=== PATIENT | female | born 1970 | race Hispanic/Latino ===

== ENCOUNTER 2021-01-06 11:23 | Emergency (ER) | payer SELFPAY ==
[2021-01-06] MEDS ORDERED: ASPIRIN 325 MG TAB PO ONE ×2 (12:30→22:10)
--- NOTE | 2021-01-06 12:36 | Event Note ---
ED Screening Note Date of service: 01/06/21 Time: 12:34 ED Screening Note: 50-year-old female with a past medical history of diabetes, hypertension, hyperlipidemia, chronic bronchitis, anxiety and depression and tobacco use presents to the ER today with complaints of left-sided chest heaviness for the past couple weeks with associated headache, blurry vision and mild shortness of breath. This initial assessment/diagnostic orders/clinical plan/treatment(s) is/are subject to change based on patients health status, clinical progression and re- assessment by fellow clinical providers in the ED. Further treatment and workup at subsequent clinical providers discretion. Patient/guardian urged not to elope from the ED as their condition may be serious if not clinically assessed and managed. Initial orders include: Chest pain order set
[2021-01-06 13:35] LABS: Basophils # (Auto) 0.1 K/mm3 (0.0-0.1); Basophils % (Auto) 0.8 % (0.0-1.8); Eosinophils # (Auto) 0.1 K/mm3 (0.0-0.4); Eosinophils % (Auto) 1.2 % (0.0-4.3); Hematocrit 46.4 % (30.3-42.9); Hemoglobin 15.7 gm/dl (10.1-14.3); Lymphocytes # (Auto) 2.3 K/mm3 (1.2-5.4); Lymphocytes % (Auto) 27.2 % (13.4-35.0); Mean Corpuscular HGB Conc 34 % (30-34); Mean Corpuscular Volume 91 fl (79-97); Monocytes # (Auto) 0.6 K/mm3 (0.0-0.8); Monocytes % (Auto) 7.2 % (0.0-7.3); Platelet Count 252 K/mm3 (140-440); Red Cell Distribution Width 15.7 % (13.2-15.2)
--- NOTE | 2021-01-06 13:41 | XRay Report ---
CHEST 2 VIEWS INDICATION / CLINICAL INFORMATION: Chest Pain. COMPARISON: None available. FINDINGS: SUPPORT DEVICES: None. HEART / MEDIASTINUM: No significant abnormality. LUNGS / PLEURA: Small calcified granuloma in the right lung base. Otherwise, no significant pulmonary or pleural abnormality. No pneumothorax. ADDITIONAL FINDINGS: No significant additional findings. IMPRESSION: 1. No acute findings. Signer Name: Kinjal Alonzo MD Signed: 01/06/2021 1:36 PM Workstation Name: [id number]
[2021-01-06 13:49] LABS: INR 0.84 (0.87-1.13)
[2021-01-06 14:45] LABS: Alanine Aminotransferase 55 units/L (7-56); Albumin 4.9 g/dL (3.9-5); BUN/Creatinine Ratio 15; Blood Urea Nitrogen 9 mg/dL (7-17); Calcium 10.3 mg/dL (8.4-10.2); Hemolysis Index 50
[2021-01-06] MEDS ORDERED: KETOROLAC 60 MG/2 ML INJ IM ONE (21:37)
[2021-01-06] MEDS ORDERED: cloNIDine 0.1 MG TAB PO ONE (21:37)
--- NOTE | 2021-01-06 22:15 | Emergency Department Report ---
ED General Adult HPI - General Chief complaint: Chest Pain Stated complaint: BLURRED VISION/CHEST /DIZZY/HEADACHE Time Seen by Provider: 01/06/21 21:24 Source: patient Mode of arrival: Ambulatory Limitations: No Limitations - History of Present Illness Initial comments: Patient is a 50-year-old female with a past medical history of hypertension who also was recently diagnosed with diabetes with a A1c of 7.4 with presenting with 1 week of mild chest heaviness as well as some blurry vision and just not feeling well. She was diagnosed with mild diabetes several days ago and has a prescription for Metformin which she has not picked. Patient denies any cough cold congestion fevers or chills. States the she can see feels as though there is just a strain with her eyes when looking at things. Severity scale (0 -10): 9 - Related Data Previous Rx's Medication Instructions Recorded Last Taken Type hydroCHLOROthiazide [HCTZ] 25 mg PO QDAY #30 tablet 01/06/21 Unknown Rx Allergies Allergy/AdvReac Type Severity Reaction Status Date / Time Penicillins Allergy Itching Verified 01/06/21 11:40 ED Review of Systems ROS: Stated complaint: BLURRED VISION/CHEST /DIZZY/HEADACHE Other details as noted in HPI Comment: All other systems reviewed and negative ED Past Medical Hx - Past Medical History Previous Medical History?: Yes Hx Hypertension: Yes Hx Diabetes: (borderline) - Surgical History Past Surgical History?: No - Medications Home Medications: Home Medications Medication Instructions Recorded Confirmed Last Taken Type hydroCHLOROthiazide [HCTZ] 25 mg PO QDAY #30 tablet 01/06/21 Unknown Rx ED Physical Exam - General Limitations: No Limitations General appearance: alert, in no apparent distress - Head Head exam: Present: atraumatic, normocephalic - Eye Eye exam: Present: normal appearance, PERRL, EOMI - ENT ENT exam: Present: mucous membranes moist - Neck Neck exam: Present: normal inspection - Respiratory Respiratory exam: Present: normal lung sounds bilaterally. Absent: respiratory distress, wheezes, rales, rhonchi - Cardiovascular Cardiovascular Exam: Present: regular rate, normal rhythm, normal heart sounds. Absent: systolic murmur, diastolic murmur, rubs, gallop - GI/Abdominal GI/Abdominal exam: Present: soft, normal bowel sounds. Absent: distended, tenderness, guarding, rebound - Extremities Exam Extremities exam: Present: normal inspection - Back Exam Back exam: Present: normal inspection - Neurological Exam Neurological exam: Present: alert, oriented X3 - Psychiatric Psychiatric exam: Present: normal affect, normal mood - Skin Skin exam: Present: warm, dry, intact, normal color. Absent: rash ED Course Vital Signs 01/06/21 01/06/21 01/06/21 12:38 21:25 21:30 Temperature 98.6 F 97.7 F Pulse Rate 114 H 104 H 96 H Respiratory 18 17 16 Rate Blood Pressure 164/84 Blood Pressure 152/97 164/84 [Right] O2 Sat by Pulse 96 98 97 Oximetry 01/06/21 01/06/21 01/06/21 21:46 21:50 21:54 Temperature Pulse Rate 95 H 104 H Respiratory 12 18 Rate Blood Pressure 127/82 127/82 Blood Pressure [Right] O2 Sat by Pulse 98 Oximetry 01/06/21 22:00 Temperature Pulse Rate 111 H Respiratory 21 Rate Blood Pressure 164/84 Blood Pressure [Right] O2 Sat by Pulse 98 Oximetry ED Medical Decision Making - Lab Data Result diagrams: 01/06/21 12:56 01/06/21 12:56 Lab Results 01/06/21 01/06/21 01/06/21 Range/Units 12:56 12:56 12:56 WBC 8.6 (4.5-11.0) K/mm3 RBC 5.10 H (3.65-5.03) M/mm3 Hgb 15.7 H (10.1-14.3) gm/dl Hct 46.4 H (30.3-42.9) % MCV 91 (79-97) fl MCH 31 (28-32) pg MCHC 34 (30-34) % RDW 15.7 H (13.2-15.2) % Plt Count 252 (140-440) K/mm3 Lymph % (Auto) 27.2 (13.4-35.0) % [place] % (Auto) 7.2 (0.0-7.3) % Eos % (Auto) 1.2 (0.0-4.3) % Baso % (Auto) 0.8 (0.0-1.8) % Lymph # (Auto) 2.3 (1.2-5.4) K/mm3 [place] # (Auto) 0.6 (0.0-0.8) K/mm3 Eos # (Auto) 0.1 (0.0-0.4) K/mm3 Baso # (Auto) 0.1 (0.0-0.1) K/mm3 Seg Neutrophils % 63.6 (40.0-70.0) % Seg Neutrophils # 5.5 (1.8-7.7) K/mm3 PT 12.1 L (12.2-14.9) Sec. INR 0.84 L (0.87-1.13) APTT 23.0 L (24.2-36.6) Sec. Sodium 135 L (137-145) mmol/L Potassium 3.7 (3.6-5.0) mmol/L Chloride 94.7 L (98-107) mmol/L Carbon Dioxide 23 (22-30) mmol/L Anion Gap 21 mmol/L BUN 9 (7-17) mg/dL Creatinine 0.6 (0.6-1.2) mg/dL Estimated GFR > 60 ml/min BUN/Creatinine Ratio 15 % Glucose 109 H (65-100) mg/dL POC Glucose (70-105) mg/dL Calcium 10.3 H (8.4-10.2) mg/dL Total Bilirubin 0.50 (0.1-1.2) mg/dL AST 51 H (5-40) units/L ALT 55 (7-56) units/L Alkaline Phosphatase 119 (35-129) units/L Troponin T < 0.010 (0.00-0.029) ng/mL Total Protein 8.2 (6.3-8.2) g/dL Albumin 4.9 (3.9-5) g/dL Albumin/Globulin Ratio 1.5 % 01/06/21 01/06/21 Range/Units 18:38 21:48 WBC (4.5-11.0) K/mm3 RBC (3.65-5.03) M/mm3 Hgb (10.1-14.3) gm/dl Hct (30.3-42.9) % MCV (79-97) fl MCH (28-32) pg MCHC (30-34) % RDW (13.2-15.2) % Plt Count (140-440) K/mm3 Lymph % (Auto) (13.4-35.0) % [place] % (Auto) (0.0-7.3) % Eos % (Auto) (0.0-4.3) % Baso % (Auto) (0.0-1.8) % Lymph # (Auto) (1.2-5.4) K/mm3 [place] # (Auto) (0.0-0.8) K/mm3 Eos # (Auto) (0.0-0.4) K/mm3 Baso # (Auto) (0.0-0.1) K/mm3 Seg Neutrophils % (40.0-70.0) % Seg Neutrophils # (1.8-7.7) K/mm3 PT (12.2-14.9) Sec. INR (0.87-1.13) APTT (24.2-36.6) Sec. Sodium (137-145) mmol/L Potassium (3.6-5.0) mmol/L Chloride (98-107) mmol/L Carbon Dioxide (22-30) mmol/L Anion Gap mmol/L BUN (7-17) mg/dL Creatinine (0.6-1.2) mg/dL Estimated GFR ml/min BUN/Creatinine Ratio % Glucose (65-100) mg/dL POC Glucose 151 H (70-105) mg/dL Calcium (8.4-10.2) mg/dL Total Bilirubin (0.1-1.2) mg/dL AST (5-40) units/L ALT (7-56) units/L Alkaline Phosphatase (35-129) units/L Troponin T < 0.010 (0.00-0.029) ng/mL Total Protein (6.3-8.2) g/dL Albumin (3.9-5) g/dL Albumin/Globulin Ratio % - EKG Data -: EKG Interpreted by [place] EKG shows normal: sinus rhythm, axis, intervals, QRS complexes, ST-T waves Rate: tachycardia (104) - EKG Data Interpretation: normal EKG - Radiology Data [facility] [address] [place] [address] XRay Report Signed Patient: SHIRLEY FAROOQ MR#: [id number] : 1970 Acct:[id number] Age/Sex: 50 / F ADM Date: 01/06/21 Loc: ED Attending Dr: Ordering Physician: BING DAIGLE Date of Service: 01/06/21 Procedure(s): XR chest routine 2V Accession Number(s): [id number] cc: BING DAIGLE Fluoro Time In Minutes: CHEST 2 VIEWS INDICATION / CLINICAL INFORMATION: Chest Pain. COMPARISON: None available. FINDINGS: SUPPORT DEVICES: None. HEART / MEDIASTINUM: No significant abnormality. LUNGS / PLEURA: Small calcified granuloma in the right lung base. Otherwise, no significant pulmonary or pleural abnormality. No pneumothorax. ADDITIONAL FINDINGS: No significant additional findings. IMPRESSION: 1. No acute findings. Signer Name: Kinjal Alonzo MD Signed: 01/06/2021 1:36 PM Workstation Name: [id number] Transcribed By: [facility] Dictated By: Kinjal Alonzo MD Electronically Authenticated By: Kinjal Alonzo MD Signed Date/Time: 01/06/21 1336 - Medical Decision Making Catapres was ordered however the blood pressure dropped spontaneously. Before discharge it went up slightly to 150 systolic however I do not feel as though the patient needs any acute intervention regarding the blood pressure. We will increase her hydrochlorothiazide dose to 25 mg daily. She is to continue with the Norvasc 10 mg and follow-up with her primary care physician. Patient blood glucose was 155 at its highest. Patient encouraged to start her Metformin. Patient has 2 - troponins and normal EKG and do not see any evidence of acute TN . Regard to patient's chest discomfort patient be given cardiology for follow- up. Critical care attestation.: If time is entered above; I have spent that time in minutes in the direct care of this critically ill patient, excluding procedure time. ED Disposition Clinical Impression: Atypical chest pain, Hypertensive urgency, Hyperglycemia Disposition: DC-01 TO HOME OR SELFCARE Is pt being admited?: No Does the pt Need Aspirin: No Condition: Stable Instructions: Nonspecific Chest Pain, Adult Referrals: PRIMARY CARE, [Primary Care Provider] - 3-5 Days Time of Disposition: 22:15
[2021-01-06 22:44] VITALS: BP 130/82
--- NOTE | 2021-01-11 12:51 | Electrocardiograph Report ---
[facility] Test Date: 2021-01-06 Test Time: 11:35:11 Pat Name: SHIRLEY FAROOQ Department: Room: Gender: F Marketing Planner: PILO : 1970 Requested By: BING DAIGLE Order Number: [id number] Reading MD: Brinda Ibarra Measurements Intervals [place] Rate: 104 P: 69 [place]: 170 QRS: 38 QRSD: 84 T: 58 QT: 359 QTc: 473 Interpretive Statements Sinus tachycardia Left atrial enlargement No previous ECG available for comparison Electronically Signed On 01-11-2021 12:50:48 EDT by Brinda Ibarra
== END 2021-01-06 22:50 | disposition home or self-care (01) ==
LOC: ED 11:23
DX: I16.0 Hypertensive urgency (principal); R73.9 Hyperglycemia, unspecified; R07.89 Other chest pain; I10 Essential (primary) hypertension; Z79.899 Other long term (current) drug therapy; Z88.0 Allergy status to penicillin
CPT/HCPCS: 36415; 71046; 80053; 82962; 84484; 85025; 85610; 85730; 93005; 96372; 99284; J1885

== ENCOUNTER 2022-04-17 14:59 | Emergency (ER) | payer SELFPAY ==
[2022-04-17 17:55] LABS: Basophils # (Auto) 0.1 K/mm3 (0.0-0.1); Eosinophils # (Auto) 0.1 K/mm3 (0.0-0.4); Eosinophils % (Auto) 1.3 % (0.0-4.3); Hematocrit 45.6 % (30.3-42.9); Hemoglobin 15.1 gm/dl (10.1-14.3); Lymphocytes # (Auto) 2.7 K/mm3 (1.2-5.4); Lymphocytes % (Auto) 35.9 % (13.4-35.0); Mean Corpuscular HGB Conc 33 % (30-34); Mean Corpuscular Volume 97 fl (79-97); Monocytes # (Auto) 0.6 K/mm3 (0.0-0.8); Monocytes % (Auto) 7.5 % (0.0-7.3); Platelet Count 211 K/mm3 (140-440); Red Blood Count 4.68 M/mm3 (3.65-5.03); Red Cell Distribution Width 13.7 % (13.2-15.2)
[2022-04-17 18:29] LABS: Alanine Aminotransferase 26 units/L (7-56); Albumin 4.8 g/dL (3.9-5); Blood Urea Nitrogen 14 mg/dL (7-17); Calcium 10.3 mg/dL (8.4-10.2); Hemolysis Index 44
[2022-04-17 18:30] LABS: BUN/Creatinine Ratio 23
[2022-04-17] MEDS ORDERED: IBUPROFEN 800 MG TAB PO ONE (23:14)
[2022-04-17] MEDS ORDERED: diphenhydrAMINE 25 MG CAP PO ONE (23:14)
--- NOTE | 2022-04-17 23:53 | XRay Report ---
CHEST 2 VIEWS INDICATION / CLINICAL INFORMATION: Dizziness. COMPARISON: 01/06/2021 FINDINGS: SUPPORT DEVICES: None. HEART / MEDIASTINUM: No significant abnormality. LUNGS / PLEURA: No significant pulmonary or pleural abnormality. No pneumothorax. Incidental note is made of bilateral calcified granulomata. The appearance is suggestive of prior healed varicella pneum onia. ADDITIONAL FINDINGS: No significant additional findings. IMPRESSION: 1. No acute findings. No interval change. Signer Name: Camilla Kwok MD Signed: 04/17/2022 11:48 PM Workstation Name: [email or web address]
--- NOTE | 2022-04-18 01:47 | Emergency Department Report ---
ED General Adult HPI - General Chief complaint: Dizziness Stated complaint: SOB, BODY PAIN Time Seen by Provider: 04/17/22 23:12 Source: patient Mode of arrival: Ambulatory Limitations: No Limitations - History of Present Illness Initial comments: Patient 52-year-old female who presents for dizziness and head congestion for 4 days. Symptoms are worse with turning head bending or stooping. States associated body aches and cough. Cough is productive clear. There is no wheezing no stridor. Patient denies history of asthma. Patient is a [id number] smoker. Patient states malaise no fever or chills. Patient is tolerating p.o. hydration. There is a history of hypertension controlled with lisinopril, hydrochlorothiazide, amlodipine. Severity scale (0 -10): 7 - Related Data Previous Rx's Medication Instructions Recorded Last Taken Type hydroCHLOROthiazide [HCTZ] 25 mg PO QDAY #30 tablet 01/06/21 Unknown Rx Ibuprofen [Motrin 800 MG tab] 800 mg PO Q8HR PRN #30 tablet 04/18/22 Unknown Rx diphenhydrAMINE [Benadryl CAP] 25 mg PO Q6HR PRN #30 capsule 04/18/22 Unknown Rx predniSONE 10 mg PO QDAY #5 tab 04/18/22 Unknown Rx Allergies Allergy/AdvReac Type Severity Reaction Status Date / Time Penicillins Allergy Itching Verified 01/06/21 11:40 ED Review of Systems ROS: Stated complaint: SOB, BODY PAIN Other details as noted in HPI Constitutional: denies: chills, fever Eyes: denies: eye pain, eye discharge, vision change ENT: ear pain, congestion, other (Sinus pain and pressure). denies: throat pain Respiratory: denies: cough, shortness of breath, wheezing Cardiovascular: denies: chest pain, palpitations Endocrine: no symptoms reported Gastrointestinal: denies: abdominal pain, nausea, vomiting, diarrhea Genitourinary: denies: urgency, dysuria, discharge Musculoskeletal: denies: back pain, joint swelling, arthralgia Skin: denies: rash, lesions Neurological: vertigo. denies: headache, weakness, numbness, paresthesias, confusion Psychiatric: denies: anxiety, depression Hematological/Lymphatic: denies: easy bleeding, easy bruising ED Past Medical Hx - Past Medical History Hx Hypertension: Yes Hx Diabetes: (borderline) - Surgical History Past Surgical History?: No - Medications Home Medications: Home Medications Medication Instructions Recorded Confirmed Last Taken Type hydroCHLOROthiazide [HCTZ] 25 mg PO QDAY #30 tablet 01/06/21 Unknown Rx Ibuprofen [Motrin 800 MG tab] 800 mg PO Q8HR PRN #30 tablet 04/18/22 Unknown Rx diphenhydrAMINE [Benadryl CAP] 25 mg PO Q6HR PRN #30 capsule 04/18/22 Unknown Rx predniSONE 10 mg PO QDAY #5 tab 04/18/22 Unknown Rx ED Physical Exam - General Limitations: No Limitations General appearance: alert, in no apparent distress - Head Head exam: Present: normocephalic, normal inspection - Eye Eye exam: Present: PERRL, EOMI Pupils: Present: normal accommodation - ENT ENT exam: Present: normal orophraynx, mucous membranes moist, TM's normal bilaterally, normal external ear exam, other (Bilateral frontal and maxillary sinus tenderness to deep palpation there is no swelling or erythema) - Expanded ENT Exam Expanded Ear exam: Present: normal external inspection Throat exam: Negative: tonsillar erythema, tonsillomegaly, tonsillar exudate, R peritonsillar mass, L peritonsillar mass - Neck Neck exam: Present: normal inspection, full ROM. Absent: tenderness, lymphadenopathy - Respiratory Respiratory exam: Present: normal lung sounds bilaterally. Absent: respiratory distress, wheezes, stridor, chest wall tenderness - Cardiovascular Cardiovascular Exam: Present: regular rate, normal rhythm, normal heart sounds. Absent: systolic murmur, diastolic murmur, rubs, gallop - GI/Abdominal GI/Abdominal exam: Present: soft, normal bowel sounds - Rectal Rectal exam: Present: deferred - Extremities Exam Extremities exam: Present: normal inspection, full ROM, normal capillary refill. Absent: tenderness - Back Exam Back exam: Present: normal inspection, full ROM. Absent: CVA tenderness (R), CVA tenderness (L) - Neurological Exam Neurological exam: Present: alert, oriented X3, CN II-XII intact, normal gait - Expanded Neurological Exam Expanded Patient oriented to: Present: person, place, time Speech: Present: fluid speech Cranial nerves: EOM's Intact: Normal Motor strength exam: RUE: 5, LUE: 5, RLE: 5, LLE: 5 Best Eye Response (Jessica): (4) open spontaneously Best Motor Response ([place]): (6) obeys commands Best Verbal Response (Jessica): (5) oriented Jessica Total: 15 - Psychiatric Psychiatric exam: Present: normal affect, normal mood - Skin Skin exam: Present: warm, dry, intact, normal color. Absent: rash ED Course Vital Signs 04/17/22 04/17/22 15:42 21:09 Temperature 99.1 F 99.1 F Pulse Rate 95 H 95 H Respiratory 16 18 Rate Blood Pressure 119/78 123/77 [Right] O2 Sat by Pulse 95 96 Oximetry ED Medical Decision Making - Lab Data Result diagrams: 04/17/22 17:23 04/17/22 17:23 Labs 04/17/22 04/17/22 17:23 17:23 WBC 7.5 RBC 4.68 Hgb 15.1 H Hct 45.6 H MCV 97 MCH 32 MCHC 33 RDW 13.7 Plt Count 211 Lymph % (Auto) 35.9 H [place] % (Auto) 7.5 H Eos % (Auto) 1.3 Baso % (Auto) 1.0 Lymph # (Auto) 2.7 [place] # (Auto) 0.6 Eos # (Auto) 0.1 Baso # (Auto) 0.1 Seg Neutrophils % 54.3 Seg Neutrophils # 4.1 Sodium 140 Potassium 4.4 Chloride 101.8 Carbon Dioxide 23 Anion Gap 20 BUN 14 Creatinine 0.6 Estimated GFR > 60 BUN/Creatinine Ratio 23 Glucose 129 H Calcium 10.3 H Total Bilirubin 0.30 AST 23 ALT 26 Alkaline Phosphatase 88 Total Protein 7.2 Albumin 4.8 Albumin/Globulin Ratio 2.0 - EKG Data EKG shows normal: sinus rhythm, axis, intervals, QRS complexes, ST-T waves Rate: normal - EKG Data Interpretation: normal EKG (Normal sinus rhythm no ST elevated MD interpreted by ED attending) - Radiology Data Radiology results: report reviewed, image reviewed HEST 2 VIEWS INDICATION / CLINICAL INFORMATION: Dizziness. COMPARISON: 01/06/2021 FINDINGS: SUPPORT DEVICES: None. HEART / MEDIASTINUM: No significant abnormality. LUNGS / PLEURA: No significant pulmonary or pleural abnormality. No pneumothorax. Incidental note is made of bilateral calcified granulomata. The appearance is suggestive of prior healed varicella pneumonia. ADDITIONAL FINDINGS: No significant additional findings. IMPRESSION: 1. No acute findings. No interval change. Signer Name: Camilla Kwok MD Signed: 04/17/2022 11:48 PM Workstation Name: [id number] Transcribed By: Dictated By: Camilla Kwok MD Electronically Authenticated By: Camilla Kwok MD Signed Date/Time: 04/17/222347 DD/ 46 TD/TT: - Medical Decision Making Chest x-ray no acute findings no infiltrates no opacities. Plan DC to home with prescriptions. Continue to hydrate. Follow-up with your primary care doctor in 2 to 3 days. Critical care attestation.: If time is entered above; I have spent that time in minutes in the direct care of this critically ill patient, excluding procedure time. ED Disposition Clinical Impression: Viral illness Disposition: 01 HOME / SELF CARE / HOMELESS Is pt being admited?: No Does the pt Need Aspirin: No Condition: Stable Instructions: Viral Illness, Adult Additional Instructions: Take medications as prescribed, hydrate as directed. Follow-up with your primary care doctor in 2 to 3 days. Prescriptions: diphenhydrAMINE [Benadryl CAP] 25 mg PO Q6HR PRN #30 capsule PRN Reason: congestion dizziness Ibuprofen [Motrin 800 MG tab] 800 mg PO Q8HR PRN #30 tablet PRN Reason: pain fever predniSONE 10 mg PO QDAY #5 tab Referrals: CAROL HUSSEIN MD [Primary Care Provider] - 3-5 Days Forms: Work/School Release Form(ED) Time of Disposition: 01:54
[2022-04-18 02:06] VITALS: BP 105/69
--- NOTE | 2022-04-18 11:47 | Electrocardiograph Report ---
[facility] Test Date: 2022-04-17 Test Time: 22:54:20 Pat Name: SHIRLEY FAROOQ Department: Room: Gender: F Wall Covering Contractor: SKYLER : 1970 Requested By: HAILE DE LA CRUZ Order Number: [id number] Reading MD: Austen Javier Measurements Intervals [place] Rate: 86 P: 71 NE: 164 QRS: 57 QRSD: 85 T: 71 QT: 367 QTc: 439 Interpretive Statements Sinus rhythm Probable left atrial enlargement Compared to ECG 01/06/2021 11:35:11 Sinus tachycardia no longer present Electronically Signed On 04-18-2022 11:47:23 EDT by Austen Javier
== END 2022-04-18 02:07 | disposition home or self-care (01) ==
LOC: ED 14:59
DX: B34.9 Viral infection, unspecified (principal); I10 Essential (primary) hypertension; E11.9 Type 2 diabetes mellitus without complications; Z88.0 Allergy status to penicillin
CPT/HCPCS: 36415; 71046; 80053; 85025; 93005; 99284